=== PATIENT | female | born 1980 | race Caucasian/White ===

== ENCOUNTER → 2023-10-31 17:28 | Outpatient (REF) | payer BC, SELFPAY | LOC: MRI 17:28 | PROVIDERS: ATTENDING PHYSICIAN Nurse Practitioner Adult Health | DX: G40.909 Epilepsy, unspecified, not intractable, without status epilepticus (principal); M54.12 Radiculopathy, cervical region; G43.009 Migraine without aura, not intractable, without status migrainosus; R41.89 Other symptoms and signs involving cognitive functions and awareness; R41.3 Other amnesia | CPT/HCPCS: 70553; 72141; A9575 ==

== ENCOUNTER → 2023-11-26 07:48 | Outpatient (REF) | payer BC, SELFPAY | LOC: HWRAD 07:48 | PROVIDERS: ATTENDING PHYSICIAN Nurse Practitioner Adult Health | DX: D73.4 Cyst of spleen (principal) | CPT/HCPCS: 76700 ==

== ENCOUNTER → 2023-12-26 10:57 | Outpatient (REF) | payer BC, SELFPAY ==
--- NOTE | 2023-12-26 13:47 | EEG.RPT ---
Electroencephalogram Report
Recording
Date of EE12/26/23
Type of EEG: Routine
Length of EEG recordin minutes
Done with Video Recording: Yes
Patient Status: Outpatient
Recording Conditions: Awake and Drowsy
Hyperventilation Performed: Yes
Photic Stimulation Performed: Yes
Report
GREATER THAN 1 HOUR EEG REPORT
EEG INTERPRETATION:
Unremarkable EEG for age
CLINICAL CORRELATION:
A normal EEG does not rule out a diagnosis of epilepsy. If clinical suspicion for seizure persists, a prolonged recording may be warranted.
Clinical correlation is advised.
METHODS:
A 21 channel digitized electroencephalogram (EEG) was performed in the [facility]. The 10/20 international system of electrode placement was used with ECG and lateral/vertical eye movements recorded. Persyst quantitative EEG
analysis was performed.
ELECTROENCEPHALOGRAPHER IMPRESSION(S):
Quality of study
Good
Background
Unremarkable, well maintained, medium amplitude alpha-frequency and unremarkable anterior-posterior voltage gradient
With eye opening the background activity changed to a low voltage mixture of frequencies.
Sleep
Drowsiness present
Hyperventilation
Did not activate the record
Photic Stimulation
Did not activate the record
ECG
Normal sinus rhythm
== END ==
LOC: RCS 10:57
PROVIDERS: ATTENDING PHYSICIAN Nurse Practitioner Adult Health; FAMILY PHYSICIAN Nurse Practitioner Adult Health
DX: R56.1 Post traumatic seizures (principal)
CPT/HCPCS: 95813

== ENCOUNTER → 2024-06-02 08:35 | Outpatient (REF) | payer BC, SELFPAY | LOC: HWWDC 08:35 | PROVIDERS: ATTENDING PHYSICIAN Nurse Practitioner Adult Health | DX: Z12.31 Encounter for screening mammogram for malignant neoplasm of breast (principal); Z13.6 Encounter for screening for cardiovascular disorders | CPT/HCPCS: 77063; 77067; 93005 ==

== ENCOUNTER → 2024-06-18 14:33 | Outpatient (REF) | payer BC, SELFPAY | LOC: HWRAD 14:33 | PROVIDERS: ATTENDING PHYSICIAN Urology; FAMILY PHYSICIAN Nurse Practitioner Adult Health | DX: R31.29 Other microscopic hematuria (principal); D17.9 Benign lipomatous neoplasm, unspecified | CPT/HCPCS: 74178; Q9967 ==

== ENCOUNTER → 2025-02-09 15:00 | Outpatient (REF) | payer BC, SELFPAY | LOC: WDC 15:00 | PROVIDERS: ATTENDING PHYSICIAN Nurse Practitioner Adult Health; FAMILY PHYSICIAN Nurse Practitioner Adult Health | DX: R92.2 Inconclusive mammogram (principal) | CPT/HCPCS: 76641 ==

== ENCOUNTER → 2025-06-03 11:37 | Outpatient (REF) | payer BC, SELFPAY | LOC: HWWDC 11:37 | PROVIDERS: ATTENDING PHYSICIAN Nurse Practitioner Adult Health; FAMILY PHYSICIAN Nurse Practitioner Adult Health | DX: Z12.31 Encounter for screening mammogram for malignant neoplasm of breast (principal) | CPT/HCPCS: 77063; 77067 ==